=== PATIENT | male | born 1960 | race African-American/Black ===

== ENCOUNTER 2022-03-03 23:27 | Emergency (ER) | payer MEDICAID, OTHER ==
[~2022-03-03] VITALS: Ht 182.9 cm; Wt 61.0 kg
[2022-03-03] MEDS ORDERED: HYDROCODONE/ACETAMINOPHEN 10/325MG TABLET PO ONE (23:45)
[2022-03-03 23:53] LABS: HEMATOCRIT 27.8 % (42.0-52.0); HEMOGLOBIN 9.1 g/dL (14.0-18.0); MEAN CORPUSCULAR HEMOGLOBIN 29.5 pg (28.0-32.0); MEAN CORPUSCULAR VOLUME 90.1 fL (80.0-94.0); PLATELET 316 x1000/uL (130-400); RED BLOOD CELL COUNT 3.09 mill/uL (4.7-6.1); RED CELL DISTRIBUTION WIDTH 24.6 % (11.6-14.6)
[2022-03-03 23:56] VITALS: BP 172/97
[2022-03-03 23:59] LABS: CHLORIDE 111 mEq/L (98-107)
== END 2022-03-04 04:42 | disposition home or self-care (01) ==
LOC: ER 23:27
DX: G89.29 Other chronic pain (principal); M79.662 Pain in left lower leg; M79.661 Pain in right lower leg; I12.0 Hypertensive chronic kidney disease with stage 5 chronic kidney disease or end stage renal disease; N18.6 End stage renal disease; D57.1 Sickle-cell disease without crisis; Z99.2 Dependence on renal dialysis
CPT/HCPCS: 36415; 80053; 85027; 85044; 99283